=== PATIENT | female | born 1970 | race Caucasian/White ===

== ENCOUNTER 2021-01-22 11:56 | Emergency (ER) | payer OTHER ==
--- NOTE | 2021-01-22 12:56 | EDM.PDOC ---
ED HPI GENERAL MEDICAL PROBLEM - General Chief Complaint: Lower Extremity Injury/Pain Stated Complaint: RIGHT KNEE INJURY Time Seen by Provider: 01/22/21 12:35 Source of Information: Reports: Patient, RN History Limitations: Reports: No Limitations - History of Present Illness INITIAL COMMENTS - FREE TEXT/NARRATIVE: 50 yo female presents with R knee pain, worse with walking stairs. She does not recall and injury. She has not noticed any swelling. No giving out of that knee. This is the first time she has been seen for this. Has a pHx may yrs ago of knee surgeries, but not for meniscal tears. Onset: Gradual Duration: Day(s):, Getting Worse, Waxing/Waning Location: Reports: Lower Extremity, Right Quality: Reports: Sharp (at times) Severity: Mild Improves with: Reports: Rest Worsens with: Reports: Movement (stairs) Context: Reports: Other (See HPI) Associated Symptoms: Reports: No Other Symptoms Treatments SUBSTANCE ABUSE TECHNICIAN: Reports: Other (see below) (none) - Related Data Allergies Allergy/AdvReac Type Severity Reaction Status Date / Time prochlorperazine Allergy Agitation Verified 01/22/21 12:25 [From Compazine] Home Meds: Home Meds atenoloL [Atenolol] 50 mg PO DAILY 01/22/21 [History] Past Medical History Cardiovascular History: Reports: Hypertension - Infectious Disease History Infectious Disease History: Reports: Chicken Pox Social & Family History - Tobacco Use Tobacco Use Status *Q: Never Tobacco User - Caffeine Use Caffeine Use: Reports: Soda - Recreational Drug Use Recreational Drug Use: No Review of Systems - Review of Systems Review Of Systems: See Below Constitutional: Reports: No Symptoms Musculoskeletal: Reports: Joint Pain (R knee). Denies: Joint Swelling Skin: Reports: No Symptoms Neurological: Reports: No Symptoms ED EXAM, GENERAL - Physical Exam Exam: See Below Exam Limited By: No Limitations General Appearance: Alert, WD/WN, No Apparent Distress Extremities: Normal Inspection, Normal Range of Motion, Non-Tender (mild R ant/lateral jt line tenderness), No Pedal Edema, Other (no ligamentous laxity or effusion noted.). No: Pedal Edema Neurological: Alert, Oriented, CN II-XII Intact, Normal Cognition, No Motor/Sensory Deficits Psychiatric: Normal Affect, Normal Mood Skin Exam: Warm, Dry, Intact, Normal Color, No Rash Course - Vital Signs Last Recorded V/S: Last Vital Signs Temp 35.8 C L 01/22/21 12:35 Pulse 98 01/22/21 12:35 Resp 16 01/22/21 12:35 BP 189/103 H 01/22/21 12:35 Pulse Ox 96 01/22/21 12:35 - Orders/Labs/Meds Orders: Active Orders 24 hr Category Date Time Status Consult to Orthopedic Clinic [CONS] Routine Cons 01/22/21 12:50 Ordered Departure - Departure Time of Disposition: 12:54 Disposition: Home, Self-Care 01 Condition: Good Clinical Impression: Pain in lateral portion of right knee - Discharge Information *PRESCRIPTION DRUG MONITORING PROGRAM REVIEWED*: Not Applicable *COPY OF PRESCRIPTION DRUG MONITORING REPORT IN PATIENT FREDDY: Not Applicable Instructions: Acute Knee Pain, Adult, [id number] Referrals: PCP,None [Primary Care Provider] - Additional Instructions: Avoid weight bearing on the right leg with simultaneous knee flexion/extension, ie., try to walk with a locked R knee. Take ibuprofen or acetaminophen as needed. F/U with Dr. Bradley for further care(orthopedics). Return as needed. Sepsis Event Note (ED) - Evaluation Sepsis Screening Result: No Definite Risk - Focused Exam Vital Signs: Vital Signs Temp Pulse Resp BP Pulse Ox 01/22/21 12:35 35.8 C L 98 16 189/103 H 96 01/22/21 12:34 35.8 C L 98 16 189/103 H 96 - My Orders Last 24 Hours: My Active Orders 01/22/21 12:50 Consult to Orthopedic Clinic [CONS] Routine - Assessment/Plan Last 24 Hours: My Active Orders 01/22/21 12:50 Consult to Orthopedic Clinic [CONS] Routine
== END 2021-01-22 13:18 | disposition home or self-care (01) ==
LOC: JP.ED 11:56
DX: M25.561 Pain in right knee (principal); I10 Essential (primary) hypertension; Z88.8 Allergy status to other drugs, medicaments and biological substances; Z79.899 Other long term (current) drug therapy
CPT/HCPCS: 99283